=== PATIENT | female | born 1990 | race American Indian/Alaskan Native ===

== ENCOUNTER 2017-04-17 22:21 | Inpatient (IN) | payer OTHER ==
[~2017-04-17] VITALS: Ht 162.6 cm; Wt 59.0 kg
== END 2017-04-18 21:26 | DRG 770 ==
LOC: ER 22:21 → SEC-K 04-18 02:33 → OB/GYN 04-18 04:47
PROVIDERS: Specialist
PROC: 30233N1 Transfusion of Nonautologous Red Blood Cells into Peripheral Vein, Percutaneous Approach (ICD-10-PCS; 2017-04-18)
PROC: 10D17ZZ Extraction of Products of Conception, Retained, Via Natural or Artificial Opening (ICD-10-PCS; principal; 2017-04-18 03:45)
DX: O03.4 Incomplete spontaneous abortion without complication (principal); O99.011 Anemia complicating pregnancy, first trimester

== ENCOUNTER 2017-09-17 06:10 | Day surgery (SDC) | payer OTHER ==
[2017-09-17] MEDS ORDERED: PERCOCET 5-3251 EACH PO (11:49)
[2017-09-17] MEDS ORDERED: NEURONTIN300 MG PO (11:49)
[2017-09-17] MEDS ORDERED: MIRALAX17 GM PO (11:50)
== END 2017-09-17 14:05 | disposition home or self-care (01) ==
LOC: CIR.AMB 06:10 → ADM 11:15 → CIR.AMB 11:15
DX: K43.6 Other and unspecified ventral hernia with obstruction, without gangrene (principal)